=== PATIENT | female | born 1975 | race Hispanic/Latino ===

== ENCOUNTER → 2017-11-08 | Outpatient (CLI) | payer MEDICARE | END | disposition home or self-care (01) | LOC: OIH 11:51 | PROVIDERS: ATTEND Internal Medicine | DX: K74.60 Unspecified cirrhosis of liver (principal); B18.2 Chronic viral hepatitis C; R13.19 Other dysphagia | CPT/HCPCS: 74150 ==

== ENCOUNTER 2018-07-17 08:26 | Emergency (ER) | payer MEDICARE ==
[2018-07-17] MEDS ORDERED: ONDANSETRON HCL 4 MG/2 ML VIAL ONE (09:03)
[2018-07-17 09:07] LABS: APPEARANCE,URINE Turbid (CLEAR); BILIRUBIN,URINE Negative (NEGATIVE); COLOR,URINE Yellow (YELLOW); GLUCOSE, URINE (UA) Negative (NEGATIVE); KETONES,URINE Trace mg/dL (NEGATIVE); LEUKOCYTE ESTERASE ,URINE Negative (NEGATIVE); NITRATE,URINE Negative (NEGATIVE); OCCULT BLOOD,URINE Trace (NEGATIVE); PH,URINE >=9.0 (5.0-8.0); PROTEIN,URINE Trace (NEGATIVE)
[2018-07-17 09:11] LABS: AMORPHOUS SEDIMENT,UR Many /LPF (None Seen); BACTERIA,URINE Few /HPF (None Seen); RBC,URINE 0-1 /HPF (0-1); SQUAMOUS EPITHELIAL CELL,UR Rare /HPF (0-2); WBC,URINE 0-1 /HPF (0-1)
[2018-07-17 09:12] LABS: HCG,QUAL RESULT NEGATIVE (NEGATIVE)
[2018-07-17 09:24] LABS: BASOPHILS % (AUTO) 0.5 % (0.0-5.0); EOSINOPHILS % (AUTO) 0.3 % (0.0-8.0); HEMATOCRIT 41.6 % (36-48); LYMPHOCYTES % (AUTO) 16.3 % (21.0-51.0); MEAN CORPUSCULAR HEMOGLOBIN 30.3 pg (27.0-33.0); MEAN CORPUSCULAR HGB CONC 33.6 g/dL (32.0-36.0); MEAN CORPUSCULAR VOLUME 90.3 fL (79-99); MONOCYTES % (AUTO) 7.6 % (3.0-13.0); NEUTROPHILS % (AUTO) 75.3 % (40.0-77.0); PLATELET COUNT (AUTO) 257 K/uL (130-400); RED BLOOD CELL COUNT(AUTO) 4.61 MIL/uL (4.00-5.50); RED CELL DISTRIBUTION WIDTH 15.5 % (11.0-15.5); WHITE BLOOD COUNT (AUTO) 8.2 K/uL (4.8-10.8)
[2018-07-17 09:35] LABS: CREATININE 0.7 mg/dL (0.5-1.5); POTASSIUM 3.3 mmol/L (3.5-5.1)
[2018-07-17 09:39] LABS: BILIRUBIN,TOTAL 0.6 mg/dL (0.2-1.0)
[2018-07-17] MEDS ORDERED: POTASSIUM BICARB/CIT AC 25 MEQ TABLET.EFF ONE (09:48)
[2018-07-17] MEDS ORDERED: SODIUM CHLORIDE 0.9% 1000ML 1,000 ML IV ONE (09:48)
[2018-07-17] MEDS ORDERED: HYOSCYAMINE SULFATE 0.125 MG TAB.SUBL SL ONE (10:16)
== END 2018-07-17 11:23 | disposition home or self-care (01) ==
LOC: EDH 08:26
DX: K52.9 Noninfective gastroenteritis and colitis, unspecified (principal); K74.60 Unspecified cirrhosis of liver
CPT/HCPCS: 36415; 71045; 80053; 81001; 81025; 82150; 82270; 83630; 83690; 85025; 87046; 87324; 87804 ×2; 96361; 96374; 99285; J2405; J7030

== ENCOUNTER → 2018-08-20 | Outpatient (CLI) | payer MEDICARE | END | disposition home or self-care (01) | LOC: OIH 16:09 | PROVIDERS: ATTEND Internal Medicine | DX: M19.072 Primary osteoarthritis, left ankle and foot (principal); M77.32 Calcaneal spur, left foot | CPT/HCPCS: 73630 ==

== ENCOUNTER 2018-09-13 09:03 | Emergency (ER) | payer MEDICARE ==
[2018-09-13 09:40] LABS: EOSINOPHILS % (AUTO) 0.6 % (0.0-8.0); HEMATOCRIT 42.3 % (36-48); LYMPHOCYTES % (AUTO) 26.3 % (21.0-51.0); MEAN CORPUSCULAR HGB CONC 33.4 g/dL (32.0-36.0); MEAN CORPUSCULAR VOLUME 89.9 fL (79-99); MONOCYTES % (AUTO) 7.5 % (3.0-13.0); NEUTROPHILS % (AUTO) 64.6 % (40.0-77.0); PLATELET COUNT (AUTO) 259 K/uL (130-400); RED CELL DISTRIBUTION WIDTH 17.5 % (11.0-15.5); WHITE BLOOD COUNT (AUTO) 9.9 K/uL (4.8-10.8)
[2018-09-13] MEDS ORDERED: SODIUM CHLORIDE 0.9% 1000ML 1,000 ML IV ONE (09:40)
[2018-09-13] MEDS ORDERED: ONDANSETRON HCL 4 MG/2 ML VIAL ONE (09:40)
[2018-09-13] MEDS ORDERED: DICYCLOMINE HCL 10 MG/ML 2ML AMP IM ONE (09:41)
[2018-09-13 10:04] LABS: ALBUMIN 3.8 g/dL (3.5-5.0); BILIRUBIN,TOTAL 0.5 mg/dL (0.2-1.0); CREATININE 0.7 mg/dL (0.5-1.5); TOTAL PROTEIN, SERUM 7.3 g/dL (6.0-8.3)
[2018-09-13 10:11] LABS: POTASSIUM 2.7 mmol/L (3.5-5.1)
[2018-09-13] MEDS ORDERED: MAGNESIUM OXIDE 400 MG TABLET PO ONE (10:35)
[2018-09-13] MEDS ORDERED: POTASSIUM BICARB/CIT AC 25 MEQ TABLET.EFF ONE (10:35)
[2018-09-13] MEDS ORDERED: IOHEXOL 350 MG/ML 100ML INFUS..BTL IV ONE (10:36)
[2018-09-13 11:50] LABS: APPEARANCE,URINE Clear (CLEAR); BILIRUBIN,URINE Negative (NEGATIVE); COLOR,URINE Yellow (YELLOW); GLUCOSE, URINE (UA) Negative (NEGATIVE); KETONES,URINE 40 mg/dL (NEGATIVE); LEUKOCYTE ESTERASE ,URINE Negative (NEGATIVE); NITRATE,URINE Negative (NEGATIVE); OCCULT BLOOD,URINE Moderate (NEGATIVE); PH,URINE 7.5 (5.0-8.0); PROTEIN,URINE Negative (NEGATIVE); UROBILINOGEN,URINE 0.2 mg/dL (0.2-1.0)
[2018-09-13 11:56] LABS: AMPHET/METH SCREEN,URINE NEGATIVE (NEGATIVE); BARBITURATE SCREEN, URINE NEGATIVE (NEGATIVE); BENZODIAZEPINES SCREEN,URINE NEGATIVE (NEGATIVE); CANNABINOID SCREEN,URINE POSITIVE (NEGATIVE); COCAINE SCREEN,URINE NEGATIVE (NEGATIVE); OPIATE SCREEN,URINE NEGATIVE (NEGATIVE); PHENCYCLIDINE SCREEN,URINE NEGATIVE (NEGATIVE)
[2018-09-13 12:09] LABS: BACTERIA,URINE Few /HPF (None Seen)
[2018-09-13] MEDS ORDERED: KETOROLAC TROMETHAMINE 15MG/ML ONE (12:09)
[2018-09-13] MEDS ORDERED: METOCLOPRAMIDE 10 MG/2 ML VIAL ONE (12:09)
[2018-09-13 12:10] LABS: WBC,URINE 0-1 /HPF (0-1)
== END 2018-09-13 12:36 | disposition home or self-care (01) ==
LOC: EDH 09:03
DX: R11.2 Nausea with vomiting, unspecified (principal); R19.7 Diarrhea, unspecified; R10.84 Generalized abdominal pain; E87.6 Hypokalemia; F12.90 Cannabis use, unspecified, uncomplicated; Z98.51 Tubal ligation status; Z98.890 Other specified postprocedural states
CPT/HCPCS: 36415; 74177; 80053; 80305; 81001; 83690; 84702; 85025; 86900; 86901; 96361; 96372; 96374; 96375; 99284; J0500; J1885; J2405; J2765; J7030; Q9967

== ENCOUNTER 2018-09-24 05:30 | Observation (INO) | payer MEDICARE ==
[2018-09-22 11:02] VITALS: BP 127/69
[2018-09-22 11:10] LABS: BASOPHILS % (AUTO) 0.6 % (0.0-5.0); EOSINOPHILS % (AUTO) 1.8 % (0.0-8.0); HEMATOCRIT 37.3 % (36-48); LYMPHOCYTES % (AUTO) 32.7 % (21.0-51.0); MEAN CORPUSCULAR HEMOGLOBIN 29.4 pg (27.0-33.0); MEAN CORPUSCULAR HGB CONC 32.7 g/dL (32.0-36.0); MEAN CORPUSCULAR VOLUME 89.9 fL (79-99); MONOCYTES % (AUTO) 7.6 % (3.0-13.0); NEUTROPHILS % (AUTO) 57.3 % (40.0-77.0); NUCLEATED RED BLOOD CELLS 0.1 % (0.0-0.19); PLATELET COUNT (AUTO) 193 K/uL (130-400); RED BLOOD CELL COUNT(AUTO) 4.15 MIL/uL (4.00-5.50); RED CELL DISTRIBUTION WIDTH 16.5 % (11.0-15.5); WHITE BLOOD COUNT (AUTO) 5.6 K/uL (4.8-10.8)
[~2018-09-24] VITALS: Ht 149.9 cm; Wt 87.0 kg
[2018-09-24] VITALS (21 sets, daily range): BP systolic 88–187; BP diastolic 30–105
[2018-09-24] MEDS: CEFAZOLIN SODIUM 1 GM VIAL IVP SCH ×2 (05:00→08:10)
[~2018-09-24 05:30] MED LIST: BLAC20TA PO; DICY10CA13 PO; DIPH1TAB PO; EMTR1TAB12 PO; GABA600T10 PO; ONDA8TAB5 PO; PANT40TA25 PO; PRAV20TA4 PO; RALT600T PO; TIZA4TAB4 PO
[2018-09-24] MEDS ORDERED: LACTATED RINGERS 1000ML 1,000 ML IV ONE (06:14)
[2018-09-24] MEDS ORDERED: MIDAZOLAM HCL 1 MG/ML 2ML VIAL ONE (07:56)
[2018-09-24] MEDS ORDERED: FENTANYL CITRATE PF 50 MCG/1 ML 2ML VIAL ONE ×2 (07:56→08:38)
[2018-09-24] MEDS ORDERED: PROPOFOL 10 MG/ML 20ML VIAL IV ONE ×2 (07:56→09:20)
[2018-09-24] MEDS ORDERED: ROCURONIUM 10MG/1ML SYR 10 MG/ML ML ONE ×2 (07:57→08:31)
[2018-09-24] MEDS ORDERED: ONDANSETRON HCL 4 MG/2 ML VIAL ONE (09:14)
[2018-09-24] MEDS ORDERED: NEOSTIGMINE 5MG/5ML SYR IV ONE (09:15)
[2018-09-24] MEDS ORDERED: GLYCOPYRROLATE 1 MG/5 ML SYRINGE ONE (09:15)
[2018-09-24] MEDS ORDERED: MEPERIDINE-PF 25 MG/ML SYG ONE ×2 (09:39→09:55)
[2018-09-24] MEDS ORDERED: PROMETHAZINE HCL 25 MG/ML 1ML AMPULE IM ONE (09:40)
[2018-09-24] MEDS ORDERED: MAGNESIUM SULFATE 1 GM/2 ML VIAL ONE (09:44)
[2018-09-24] MEDS ORDERED: KETAMINE HCL 100 MG/ML 5ML VIAL IJ ONE (09:44)
[2018-09-24] MEDS ORDERED: HYDROMORPHONE 1 MG/1 ML AMP ONE (10:04)
--- NOTE | 2018-09-24 10:40 | NUR ---
ARRIVED PATIENT ARRIVED VIA BED FROM PACU. PATIENT AWAKE , ORIENTED AND ALERTX3. SCDS TO LOWER BILATERAL EXTREMITIES APPLIED. ORIENTED PATIENT TO ROOM AND CALL LIGHT. C/O CRAMPING TO LOWER ABDOMEN.
--- NOTE | 2018-09-24 10:50 | NUR ---
SAFETY ASSISTED PATIENT TO RESTROOM WITH KRISTAL HUNT. GAIT IS STEADY, NO DIZZINESS REPORTED. EDUCATED ON EMERGENCY CALL CORDS LOCATED IN RESTROOM. PATIENT UNABLE TO VOID.
[2018-09-24] MEDS ORDERED: BISACODYL 10 MG SUPP.RECT RC PRN (11:00)
[2018-09-24] MEDS ORDERED: PROMETHAZINE HCL 25 MG/ML 1ML AMPULE IM PRN (11:00)
[2018-09-24] MEDS ORDERED: IBUPROFEN 600 MG TABLET PO PRN (11:00)
[2018-09-24] MEDS ORDERED: ONDANSETRON HCL 4 MG/2 ML VIAL IVP PRN (11:00)
[2018-09-24] MEDS: MEPERIDINE-PF 75 MG/ML SYG IM PRN ×4 (11:34→22:54)
[2018-09-24] MEDS: PROMETHAZINE HCL 25 MG/ML 1ML AMPULE IM PRN ×4 (11:34→22:53)
[2018-09-24] MEDS: DEXTROSE 5 %-0.45 % NACL 1,000 ML IV PRN ×2 (11:36→17:49)
[2018-09-24] MEDS: ACETAMINOPHEN-CODEINE 300/30MG TAB PO PRN ×2 (13:17→21:27)
--- NOTE | 2018-09-24 15:40 | NUR ---
SPOKE WITH DR. FRANCIS, INFORMED ON PATIENT'S STATUS. NEW ORDERS RECEIVED TO CONTINUE WITH HOME MEDICATIONS.
[2018-09-24] MEDS ORDERED: TIZANIDINE HCL 2 MG TABLET PO PRN (16:15)
--- NOTE | 2018-09-24 19:45 | NUR ---
Activity: Patient up to the bathroom to void, was back to bed and claimed, " My back hurts its sore and cramping." Patient advice to reposition self. Plan of care discussed with patient verbalizes understanding.
[2018-09-24] MEDS ORDERED: SIMVASTATIN 10 MG TABLET PO SCH (21:00)
[2018-09-24] MEDS: DOCUSATE SODIUM 100 MG CAP PO PRN (21:12)
[2018-09-24] MEDS: SIMETHICONE 80 MG TAB.CHEW PO PRN (21:12)
[2018-09-24] MEDS: DICYCLOMINE HCL 20 MG TAB PO SCH (21:13)
[2018-09-24] MEDS: GABAPENTIN 300 MG CAPSULE PO SCH (21:14)
[2018-09-25 00:46] VITALS: BP 128/60
[2018-09-25] MEDS: PROMETHAZINE HCL 25 MG/ML 1ML AMPULE IM PRN (04:40)
[2018-09-25] MEDS: MEPERIDINE-PF 75 MG/ML SYG IM PRN (04:41)
[2018-09-25 04:52] VITALS: BP 141/81
[2018-09-25] MEDS: CEFAZOLIN SODIUM 1 GM VIAL IVP SCH (05:00)
[2018-09-25 05:46] LABS: HEMATOCRIT 35.8 % (36-48); MEAN CORPUSCULAR HEMOGLOBIN 30.7 pg (27.0-33.0); MEAN CORPUSCULAR HGB CONC 33.7 g/dL (32.0-36.0); MEAN CORPUSCULAR VOLUME 91.1 fL (79-99); PLATELET COUNT (AUTO) 217 K/uL (130-400); RED BLOOD CELL COUNT(AUTO) 3.93 MIL/uL (4.00-5.50); RED CELL DISTRIBUTION WIDTH 17.2 % (11.0-15.5); WHITE BLOOD COUNT (AUTO) 9.8 K/uL (4.8-10.8)
[2018-09-25 07:22] VITALS: BP 113/73
[2018-09-25] MEDS: DOCUSATE SODIUM 100 MG CAP PO PRN (07:41)
[2018-09-25] MEDS: SIMETHICONE 80 MG TAB.CHEW PO PRN (07:41)
[2018-09-25] MEDS: ACETAMINOPHEN-CODEINE 300/30MG TAB PO PRN (07:43)
[2018-09-25] MEDS: DICYCLOMINE HCL 20 MG TAB PO SCH (08:50)
[2018-09-25] MEDS: GABAPENTIN 300 MG CAPSULE PO SCH (08:50)
[2018-09-25] MEDS ORDERED: Emtricitabine/Tenofov Alafenam (Descovy 200-25 mg Tablet PO SCH (09:00)
[2018-09-25] MEDS ORDERED: PANTOPRAZOLE SODIUM 40 MG TABLET.DR PO SCH (09:00)
[2018-09-25 11:31] VITALS: BP 110/62
--- NOTE | 2018-09-25 13:20 | NUR ---
INSTRUCTIONS INSTRUCTIONS READ AND EXPLAINED TO PATIENT. PRESCRIPTION FOR TYLENOL#3 HANDED TO PATIENT. QUESTIONS INVITED AND EXPLAINED. NO COMPLAINTS OR CONCERNS ADDRESSED FROM PATIENT.
--- NOTE | 2018-09-25 13:30 | NUR ---
DISCHARGE PATIENT LEFT UNIT VIA WHEELCHAIR ACCOMPANIED BY . PERSONAL VEHICLE USED FOR TRANSPORTATION.
== END 2018-09-25 13:30 | disposition home or self-care (01) ==
LOC: DAH 05:30 → WSH 05:31
PROVIDERS: ADMIT Obstetrics & Gynecology; ATTEND Obstetrics & Gynecology
DX: N92.1 Excessive and frequent menstruation with irregular cycle (principal); K46.9 Unspecified abdominal hernia without obstruction or gangrene; N94.10 Unspecified dyspareunia; N94.6 Dysmenorrhea, unspecified
CPT/HCPCS: 36415 ×2; 85025; 85027; 86850; 86900; 86901; 88305; 88307; 96372 ×2; A4218; A4351; A4510; A4600; A4606; A4649; A4930; G0378 ×32; J0690; J1170; J2175 ×7; J2250; J2405; J2550 ×6; J2704 ×2; J2710; J3010 ×2; J3475; J3490 ×2; J7120 ×2

== ENCOUNTER 2018-09-29 17:09 | Emergency (ER) | payer MEDICARE ==
[~2018-09-29 17:09] MED LIST changes: -BLAC20TA PO
[2018-09-29 17:33] LABS: APPEARANCE,URINE Clear (CLEAR); BILIRUBIN,URINE Negative (NEGATIVE); COLOR,URINE Yellow (YELLOW); GLUCOSE, URINE (UA) Negative (NEGATIVE); KETONES,URINE Negative (NEGATIVE); LEUKOCYTE ESTERASE ,URINE Large (NEGATIVE); NITRATE,URINE Negative (NEGATIVE); OCCULT BLOOD,URINE Moderate (NEGATIVE); PROTEIN,URINE Negative (NEGATIVE); UROBILINOGEN,URINE 0.2 mg/dL (0.2-1.0)
[2018-09-29 17:52] LABS: BACTERIA,URINE Few /HPF (None Seen); RBC,URINE 0-1 /HPF (0-1)
[2018-09-29 17:53] LABS: SQUAMOUS EPITHELIAL CELL,UR Few /HPF (0-2)
[2018-09-29] MEDS ORDERED: MORPHINE SULFATE 4 MG/1ML SYG ONE (18:17)
[2018-09-29] MEDS ORDERED: ONDANSETRON HCL 4 MG/2 ML VIAL ONE (18:17)
[2018-09-29 18:24] LABS: BASOPHILS % (AUTO) 0.8 % (0.0-5.0); EOSINOPHILS % (AUTO) 3.2 % (0.0-8.0); HEMATOCRIT 33.5 % (36-48); LYMPHOCYTES % (AUTO) 29.6 % (21.0-51.0); MEAN CORPUSCULAR HEMOGLOBIN 29.4 pg (27.0-33.0); MEAN CORPUSCULAR HGB CONC 32.2 g/dL (32.0-36.0); MEAN CORPUSCULAR VOLUME 91.3 fL (79-99); NEUTROPHILS % (AUTO) 58.4 % (40.0-77.0); NUCLEATED RED BLOOD CELLS 0.1 % (0.0-0.19); PLATELET COUNT (AUTO) 151 K/uL (130-400); RED BLOOD CELL COUNT(AUTO) 3.67 MIL/uL (4.00-5.50); RED CELL DISTRIBUTION WIDTH 17.4 % (11.0-15.5)
[2018-09-29 18:31] LABS: CREATININE 0.7 mg/dL (0.5-1.5); POTASSIUM 3.8 mmol/L (3.5-5.1)
[2018-09-29] MEDS ORDERED: CEFTRIAXONE SODIUM 1 GM ONE (19:22)
== END 2018-09-29 19:53 | disposition home or self-care (01) ==
LOC: EDH 17:09
DX: N39.0 Urinary tract infection, site not specified (principal); K74.60 Unspecified cirrhosis of liver; Z21 Asymptomatic human immunodeficiency virus [HIV] infection status
CPT/HCPCS: 36415; 74176; 80048; 81001; 85025; 87077; 87088; 87186; 96374; 96375; 99284; A4218; J0696; J2270; J2405

== ENCOUNTER 2018-10-30 13:45 | Emergency (ER) | payer MEDICARE ==
[2018-10-30 15:08] LABS: BASOPHILS % (AUTO) 0.7 % (0.0-5.0); EOSINOPHILS % (AUTO) 0.1 % (0.0-8.0); HEMATOCRIT 39.3 % (36-48); LYMPHOCYTES % (AUTO) 14.3 % (21.0-51.0); MEAN CORPUSCULAR HEMOGLOBIN 29.5 pg (27.0-33.0); MEAN CORPUSCULAR HGB CONC 32.9 g/dL (32.0-36.0); MEAN CORPUSCULAR VOLUME 89.5 fL (79-99); MONOCYTES % (AUTO) 3.3 % (3.0-13.0); NEUTROPHILS % (AUTO) 81.6 % (40.0-77.0); PLATELET COUNT (AUTO) 228 K/uL (130-400); RED BLOOD CELL COUNT(AUTO) 4.39 MIL/uL (4.00-5.50); RED CELL DISTRIBUTION WIDTH 15.9 % (11.0-15.5); WHITE BLOOD COUNT (AUTO) 7.5 K/uL (4.8-10.8)
[2018-10-30 15:22] LABS: CREATININE 0.7 mg/dL (0.5-1.5)
[2018-10-30] MEDS ORDERED: POTASSIUM CHLORIDE 20 MEQ ERTAB PO ONE (15:25)
[2018-10-30 15:26] LABS: ALBUMIN 3.8 g/dL (3.5-5.0); BILIRUBIN,TOTAL 0.4 mg/dL (0.2-1.0); TOTAL PROTEIN, SERUM 7.4 g/dL (6.0-8.3)
[2018-10-30] MEDS ORDERED: METOCLOPRAMIDE 10 MG/2 ML VIAL ONE (15:45)
[2018-10-30 15:59] LABS: APPEARANCE,URINE Clear (CLEAR); BILIRUBIN,URINE Negative (NEGATIVE); COLOR,URINE Yellow (YELLOW); GLUCOSE, URINE (UA) Negative (NEGATIVE); KETONES,URINE >=80 mg/dL (NEGATIVE); LEUKOCYTE ESTERASE ,URINE Trace (NEGATIVE); NITRATE,URINE Negative (NEGATIVE); OCCULT BLOOD,URINE Moderate (NEGATIVE); PH,URINE 8.5 (5.0-8.0); PROTEIN,URINE Negative (NEGATIVE)
[2018-10-30 16:08] LABS: AMPHET/METH SCREEN,URINE NEGATIVE (NEGATIVE); BARBITURATE SCREEN, URINE NEGATIVE (NEGATIVE); BENZODIAZEPINES SCREEN,URINE NEGATIVE (NEGATIVE); CANNABINOID SCREEN,URINE POSITIVE (NEGATIVE); COCAINE SCREEN,URINE NEGATIVE (NEGATIVE); OPIATE SCREEN,URINE NEGATIVE (NEGATIVE); PHENCYCLIDINE SCREEN,URINE NEGATIVE (NEGATIVE)
[2018-10-30 16:12] LABS: BACTERIA,URINE Few /HPF (None Seen); RBC,URINE None Seen /HPF (0-1); SQUAMOUS EPITHELIAL CELL,UR None Seen /HPF (0-2)
[2018-10-30 16:13] LABS: MUCUS,URINE Few LPF (None Seen)
== END 2018-10-30 16:40 | disposition home or self-care (01) ==
LOC: EDH 13:45
DX: F12.10 Cannabis abuse, uncomplicated (principal); R68.83 Chills (without fever); Z90.710 Acquired absence of both cervix and uterus; Z87.891 Personal history of nicotine dependence
CPT/HCPCS: 36415; 71045; 80053; 80305; 81001; 85025; 87804 ×2; 96374; 99284; J2765

== ENCOUNTER 2019-04-22 17:53 | Emergency (ER) | payer MEDICARE ==
[~2019-04-22 17:53] MED LIST changes: -TIZA4TAB4 PO; +TIZA4TAB5 PO
[2019-04-22] MEDS ORDERED: ORPHENADRINE CITRATE 30 MG/ML ML ONE (18:24)
[2019-04-22] MEDS ORDERED: KETOROLAC TROMETHAMINE 15MG/ML ONE (18:25)
[2019-04-22 18:29] LABS: BASOPHILS % (AUTO) 0.9 % (0.0-5.0); EOSINOPHILS % (AUTO) 3.4 % (0.0-8.0); HEMATOCRIT 36.3 % (36-48); LYMPHOCYTES % (AUTO) 32.1 % (21.0-51.0); MEAN CORPUSCULAR HEMOGLOBIN 30.3 pg (27.0-33.0); MEAN CORPUSCULAR HGB CONC 34.3 g/dL (32.0-36.0); MEAN CORPUSCULAR VOLUME 88.5 fL (79-99); MONOCYTES % (AUTO) 6.1 % (3.0-13.0); NEUTROPHILS % (AUTO) 57.5 % (40.0-77.0); NUCLEATED RED BLOOD CELLS 0.1 % (0.0-0.19); PLATELET COUNT (AUTO) 159 K/uL (130-400); RED CELL DISTRIBUTION WIDTH 16.3 % (11.0-15.5); WHITE BLOOD COUNT (AUTO) 5.3 K/uL (4.8-10.8)
[2019-04-22 18:43] LABS: ALBUMIN 3.3 g/dL (3.5-5.0); BILIRUBIN,TOTAL 0.3 mg/dL (0.2-1.0); CREATININE 0.6 mg/dL (0.5-1.5); TOTAL PROTEIN, SERUM 6.4 g/dL (6.0-8.3)
[2019-04-22] MEDS ORDERED: DIAZEPAM 5 MG TABLET ONE (19:37)
[2019-04-22] MEDS ORDERED: MAGNESIUM OXIDE 400 MG TABLET PO ONE (19:37)
[2019-04-22] MEDS ORDERED: POTASSIUM CHLORIDE 20 MEQ ERTAB PO ONE (19:37)
[2019-04-22] MEDS ORDERED: DIAZEPAM 2 MG TAB ONE (20:32)
== END 2019-04-22 20:59 | disposition home or self-care (01) ==
LOC: EDH 17:53
DX: M54.9 Dorsalgia, unspecified (principal); G89.29 Other chronic pain; E87.6 Hypokalemia; F41.1 Generalized anxiety disorder; K74.60 Unspecified cirrhosis of liver
CPT/HCPCS: 36415; 80053; 83690; 85025; 96374; 96375; 99284; J1885; J2360

== ENCOUNTER → 2019-06-19 | Outpatient (CLI) | payer MEDICARE ==
[~2019-06-19] MED LIST changes: +GADODIAMIDE 10 MMOL/20 ML VIAL IV ONE
== END | disposition home or self-care (01) ==
LOC: RAH 10:35
PROVIDERS: ATTEND Internal Medicine
DX: M54.16 Radiculopathy, lumbar region (principal); R26.81 Unsteadiness on feet
CPT/HCPCS: 72158; A9579

== ENCOUNTER 2021-05-04 20:55 | Emergency (ER) | payer MEDICARE ==
[~2021-05-04] VITALS: Ht 147.3 cm; Wt 103.9 kg
[~2021-05-04 20:55] MED LIST changes: -GADODIAMIDE 10 MMOL/20 ML VIAL IV ONE; -PANT40TA25 PO; +PANT40TA54 PO
[2021-05-04] MEDS ORDERED: HYDROCODONE/ACETAMINOPHEN 10/325 MG TAB PO ONE (21:30)
[2021-05-04] MEDS ORDERED: DIAZEPAM 5 MG TABLET PO ONE (21:30)
[2021-05-04] MEDS ORDERED: KETOROLAC 60 MG VIAL (30MG/ML) IM ONE (21:30)
[2021-05-04 21:54] VITALS: BP 166/97
[2021-05-04] MEDS ORDERED: CYCL10 PO (22:38)
[2021-05-04] MEDS ORDERED: MELO7.5T12 PO (22:38)
[2021-05-04 22:47] VITALS: BP 154/92
== END 2021-05-04 23:29 | disposition home or self-care (01) ==
LOC: EDH 20:55
DX: M47.897 Other spondylosis, lumbosacral region (principal); M54.5 Low back pain; Z79.899 Other long term (current) drug therapy
CPT/HCPCS: 72131; 96372; 99284; J1885

== ENCOUNTER → 2022-01-19 | Outpatient (CLI) | payer MEDICARE ==
[~2022-01-19] MED LIST changes: +CYCL10TA16 PO; +MELO7.5T12 PO; +TIZA-211 PO; -TIZA4TAB5 PO
== END ==
LOC: RAH 10:23
PROVIDERS: ATTEND Otolaryngology Plastic Surgery within the Head & Neck
DX: R04.1 Hemorrhage from throat (principal)
CPT/HCPCS: 76536

== ENCOUNTER → 2024-09-24 | Outpatient (CLI) | payer MEDICARE ==
[~2024-09-24] MED LIST changes: -DICY10CA13 PO; +DICY10CA2 PO; +GABA-1405 PO; -GABA600T10 PO
--- NOTE | 2024-09-27 10:04 | HMCSR ---
APPROVED REPORT EXAM: Two-dimensional and M-mode echocardiogram with Doppler and color Doppler. INDICATION ICD: Encounter for pre-procedural cardiovascular exam Z01.818 2D Dimensions RVDd3.8 cmLVEF(%)56.3 (>50%)LVED Vol(simp.)97.9 mL IVSd0.5 (0.7-1.1cm)FS(%)30 %LVES Vol(simp.)41.4 mL LVDd5.7 (3.8-5.6cm)LA (2D)4.4 (1.6-4.0cm)LVEF(%, simp.)58 % PWd0.8 (0.7-1.1cm)Ao Root(2D)2.8 (2.0-3.7cm)LA ESV INDEX (4CH)28.70 mL/m2 IVSs1.0 cmLVOT diam2.4 (1.8-2.4cm)LA ESV INDEX (2CH)22.30 mL/m2 LVDs4.0 (2.5-4.0cm)LA ESV INDEX (BP)26.80 mL/m2 PWs1.2 cm Aortic Valve AoV VTI0.3 mAo Mean GR5.0 mmHgLVOT VTI0.16 m ANURAG (VMAX)2.6 cm2AVA (VTI) 2.6 cm2 Mitral Valve MV E Vmax89.2 cm/sDECEL Duby969 ms MV A Vmax75.7 cm/sP 1/2 T67 ms E/A ratio1.2MVA (PHT)3.3 cm2 MR Max PG41 mmHg TDI E/E' Hzdnti94.3E/E' Scqbhge10.0 Medial E' Peak V7.90 cm/sLateral E' Peak V8.10 cm/s Pulmonary Valve PV VTI0.23 mPV Mean GR4 mmHg PI End Letha. Haroon 139.8 cm/s Tricuspid Valve TR Vmax2.2 m/s TR Peak GR19.1 mmHg Left Ventricle The left ventricle is normal size. Normal wall motion There is normal left ventricular wall thickness . LVEF is 55-60%. The left ventricular diastolic function is normal. Right Ventricle The right ventricle is normal size. The right ventricular systolic function is normal. Atria The left atrium size is normal. The right atrium size is normal. Aortic Valve The aortic valve is normal in structure. No aortic regurgitation is present. There is no aortic valvu lar stenosis. Mitral Valve The mitral valve is normal in structure. Mitral regurgitation is trace to mild. There is no mitral va lve stenosis. Tricuspid Valve The tricuspid valve is normal in structure. There is trace tricuspid valve regurgitation noted. Pulmonic Valve The pulmonary valve is normal in structure. There is trivial pulmonic valvular regurgitation. Great Vessels The aortic root is normal in size. The IVC is normal in size and collapses >50% with inspiration. Pericardium There is no pericardial effusion. Conclusion LVEF is 55-60%. The left ventricular diastolic function is normal. There is normal left ventricular wall thickness. The left ventricle is normal size. There is no pericardial effusion. Normla pulmonary pressures Study quality was adeqaute
== END | disposition home or self-care (01) ==
LOC: RAH 11:20
PROVIDERS: ATTEND Internal Medicine Cardiovascular Disease
DX: Z01.810 Encounter for preprocedural cardiovascular examination (principal); I08.8 Other rheumatic multiple valve diseases
CPT/HCPCS: 93306